=== PATIENT | female | born 1985 | race American Indian/Alaskan Native ===

== ENCOUNTER 2017-02-22 10:32 | Emergency (ER) | payer MEDICAID ==
[2017-02-22 10:38] VITALS: BP 105/70; PULSE 79; TEMP 97; O2SAT 99; BMI 40.2
--- NOTE | 2017-02-22 11:53 | ED PDOC ---
Lower Extremity Pain/Injury Time Seen by Provider: 02/22/17 11:19 Chief Complaint (Nursing): Lower Extremity Problem/Injury Chief Complaint (Provider): right ankle pain History Per: Patient History/Exam Limitations: no limitations - Ankle/Foot Description Of Injury: Twisted Currently Unable To: Bear Weight Alleviating Factor(s): Ice Therapy, Elevation Feet: 1 - pain, swelling,pain - Risk Factors DVT Risk Factors: Pos: None Past Medical History Reviewed: Historical Data, Nursing Documentation, Vital Signs Vital Signs: Last Vital Signs Temp 97 F L 02/22/17 10:37 Pulse 79 02/22/17 10:37 Resp BP 105/70 02/22/17 10:37 Pulse Ox 99 02/22/17 10:37 - Medical History PMH: No Chronic Diseases - Surgical History Surgical History: - Family History Family History: States: Unknown Family Hx - Immunization History Hx Tetanus Toxoid Vaccination: No Hx Influenza Vaccination: No Hx Pneumococcal Vaccination: No - Home Medications Home Medications: Ambulatory Orders Medication Instructions Recorded Bactrim DS 800 mg-160 mg 1 tab PO BID 11/08/13 Cephalexin 500 mg PO Q6H 11/08/13 traZODone 50 mg PO HS 11/08/13 Ibuprofen [Motrin] 1 tab PO TID PRN #30 tab 11/11/13 Acetaminophen/Codeine Phosph 1 tab PO Q6H PRN #15 tab 10/15/14 [Acetaminophen/Codeine 300 mg-30 mg] Albuterol HFA [Ventolin HFA 90 1 puff IH BID PRN #1 unit 10/15/14 mcg/actuation (8 g)] Amoxicillin/Clavulanate Pota 1 tab PO BID #20 tab 10/15/14 [Augmentin 875 mg-125 mg] Ondansetron ODT [Zofran ODT] 4 mg PO QID PRN #15 odt 10/12/15 Ibuprofen [Motrin] 400 mg PO Q6 #30 tab 12/20/15 traMADol [Ultram] 50 mg PO TID PRN #20 tab 01/03/16 - Allergies Allergies/Adverse Reactions: Allergies Allergy/AdvReac Type Severity Reaction Status Date / Time acetaminophen [From Percocet] Allergy ITCHING Verified 02/22/17 10:58 oxycodone HCl [From Percocet] Allergy ITCHING Verified 02/22/17 10:58 Review of Systems ROS Statement: Except As Marked, All Systems Reviewed And Found Negative Constitutional: Negative for: Fever Musculoskeletal: Positive for: Other (ankle pain) Physical Exam - Reviewed Nursing Documentation Reviewed: Yes Vital Signs Reviewed: Yes - Physical Exam Appears: Positive for: Well, Non-toxic, No Acute Distress Skin: Positive for: Normal Color, Warm, DRY Cardiovascular/Chest: Positive for: Regular Rate, Rhythm Respiratory: Positive for: CNT, Normal Breath Sounds Extremity: Positive for: Other (right ankle: swelling to medial aspect of ankle. tenderness noted. nuerovasc intact. no fibula head pain) Neurologic/Psych: Positive for: Alert, Oriented - ECG O2 Sat by Pulse Oximetry: 99 - Radiology X-Ray: Interpreted by Me (hardware noted. soft tissue swelling noted. no acute fracture. ) Medical Decision Making Medical Decision Making: aircast placed and crutches. f/u with podiatry. motrin Disposition - Clinical Impression Clinical Impression: Ankle injury - Patient ED Disposition Is Patient to be Admitted: No Counseled Patient/Family Regarding: Studies Performed, Diagnosis, Need For Followup, Rx Given - Disposition Referrals: Podiatry Clinic [Outside] Disposition: Routine/Home Disposition Time: 11:57 Condition: STABLE Instructions: Swollen Joint (ED) Forms: [facility] ([place]), [facility] ED School/Work Excuse
--- NOTE | 2017-02-22 13:09 | RAD ---
PROCEDURE: Left Ankle Radiographs. HISTORY: injury COMPARISON: 01/03/2016 FINDINGS: BONES: Status post ORIF distal fibular fracture with plate and screw fixation device. No acute fracture identified. Plantar calcaneal spur noted. JOINTS: Normal. No osteoarthritis. Ankle mortise maintained. Talar dome intact SOFT TISSUES: Mild medial soft tissue swelling noted. OTHER FINDINGS: None. IMPRESSION: No acute fracture.
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
== END 2017-02-22 15:27 | disposition home or self-care (01) ==
LOC: H.ER 10:32
DX: M76.822 Posterior tibial tendinitis, left leg (principal)

== ENCOUNTER 2017-04-20 13:07 | Observation (INO) | payer MEDICAID ==
[2017-04-11 15:04] VITALS: BMI 41.3
--- NOTE | 2017-04-20 14:34 | CP.PCM.PN ---
Subjective - Date & Time of Evaluation Date of Evaluation: 04/20/17 Time of Evaluation: 14:44 - Subjective Subjective: 31 y/o female seen at bedside in [facility] for left foot surgery. Patient states that she is having her ligaments and tendons repaired to the left foot. Patient states that she has been NPO since midnight and denies of any adverse anesthesia reactions. Patient denies of any recent F/N/V/C/SOB/CP. PMHx: denies PSHx: Laproscopy, Craniotomy, left ankle surgery Allergies: Tylenol, Percocet SHx: agrees to marijuana smoking Objective - Vital Signs/Intake and Output Vital Signs (last 24 hours): Temp Pulse Resp BP Pulse Ox 98.5 F 86 18 110/71 96 04/20/17 13:54 04/20/17 13:54 04/20/17 13:54 04/20/17 13:54 04/20/17 13:54 - Constitutional Appears: Well, Non-toxic, No Acute Distress - Extremities Exam Additional comments: Left LE exam: VASC: DP/PT pulses are palpable 2/4, Cap refill time: < 3 sec to all digits, Temp gradient: Warm to cool from proximal to distal, no pitting or non-pitting edema noted DERM: no open lesions, no erythema, no clinical suspicion of active infection NEURO: protective sensation grossly intact ORTHO: Pain on the medial aspect of the ankle on active and passive ROM, pain on Inversion, dorsiflexion, plantarflexion against resistance superior to the PT tendon course, pain on palpation superior to spring ligament, pain on palpation at the course of PT tendon proximal to the ankle joint extending down to its insertion, MMT: 5/5 in all 4 directions - Neurological Exam Neurological Exam: Alert, Awake, Oriented x3 - Psychiatric Exam Psychiatric exam: Normal Affect, Normal Mood Assessment and Plan - Assessment and Plan (Free Text) Assessment: 31 y/o female seen in [facility] for removal of painful hardware, PT tendon and spring ligament repair on the left foot Plan: Pt was seen and examined in [facility] Pt NPO status was confirmed All Pre-op testing and clearance was in the chart Pt has exhausted all conservative treatment at this time and is opting for surgical intervention Pt was explained procedure and post-operative course All pt's questions were answered to satisfaction No guarantees were made Pt understands all risks, benefits and complications of procedure Pt will follow-up with Dr. Olea
--- NOTE | 2017-04-20 14:38 | CP.SDSHP ---
Same Day Surgery H & P - History Proposed Procedure: Repair of PT tendon, LUIS ankle Pre-Op Diagnosis: Painful hardware in left ankle, PT tear and spring ligament tear - Allergies Allergies: Allergies acetaminophen [From Percocet] Allergy (Verified 02/22/17 10:58) ITCHING oxycodone HCl [From Percocet] Allergy (Verified 02/22/17 10:58) ITCHING - Physical Exam Vital Signs: Vital Signs 04/20/17 13:54 Temperature 98.5 F Pulse Rate 86 Respiratory 18 Rate Blood Pressure 110/71 O2 Sat by Pulse 96 Oximetry Mental Status: Alert & Oriented x3 Neuro: WNL Heart: WNL Lungs: WNL GI: WNL - {Optional Preform as Required} Ortho: Other - Impression Impression: Pt was seen and examined in SDS. Pt NPO status was confirmed. All Pre-op testing and clearance was in the chart. Pt has exhausted all conservative treatment at this time and is opting for surgical intervention. Pt was explained procedure and post-operative course. All pt's questions were answered to satisfaction. No guarantees were made. Pt understands all risks, benefits and complications of procedure. Pt will follow-up with Dr. Olea Short Stay Discharge - Short Stay Discharge Admitting Diagnosis/Reason for Visit: T84.498D / M76.821 Disposition: HOME/ ROUTINE Referrals: Ramsey Clancy MD [Primary Care Provider] - Additional Instructions (Diet, Activity): Patient tolerated the surgery well Patient will be admitted to hospital for 23 hour obs for pain management
[2017-04-20] MEDS ORDERED: Lidocaine 1% Inj (20ml) IJ ONE (14:41)
[2017-04-20] MEDS ORDERED: ceFAZolin 2 GM in Sodium Chloride 0.9% 100 ML IVPB ONE (14:41)
[2017-04-20] MEDS ORDERED: Bupivacaine 0.5% Inj(30mL) IJ ONE (14:41)
[2017-04-20] MEDS ORDERED: Sodium Chloride 0.9% 1,000 ML IV SCH (14:45)
[2017-04-20] MEDS ORDERED: Bupivacaine 0.5% Inj(30mL) ONE (15:33)
[2017-04-20] MEDS ORDERED: Lidocaine 1% Inj (20ml) ONE (15:33)
[2017-04-20] MEDS ORDERED: Sevoflurane - Inhalation Anesthetic Liq (250 ml) ONE (15:55)
[2017-04-20] MEDS ORDERED: Midazolam 2 MG/2 ML VIAL ONE (15:55)
[2017-04-20] MEDS ORDERED: Lidocaine Hydrochloride 5 ML INJ ONE (15:55)
[2017-04-20] MEDS ORDERED: Propofol 10 mg/ml Inj (20 ML) ONE (15:55)
[2017-04-20] MEDS ORDERED: Lidocaine Hydrochloride 10 ML INJ ONE (16:06)
[2017-04-20] MEDS ORDERED: Lactated Ringer's 1,000 ML IV ONE ×2 (17:00→19:40)
[2017-04-20] MEDS ORDERED: HYDROmorphone 0.5 mg/0.5 ml ISec ONE (20:40)
[2017-04-20] MEDS ORDERED: Midazolam 2 MG/2 ML VIAL IVP PRN (20:40)
[2017-04-20] MEDS ORDERED: Lactated Ringer's 1,000 ML IV SCH (20:45)
[2017-04-20] MEDS: HYDROmorphone 0.5 mg/0.5 ml ISec IVP PRN ×6 (20:46→21:37)
--- NOTE | 2017-04-20 20:46 | PCM.SURG1 ---
Surgeon's Initial Post Op Note - Surgeon's Notes Surgeon: Dr. Olea DPM Professor Of Economics: Dr. Choi PGY-3, Dr. Muniz PGY-2, Dr. Cam PGY-1 Type of Anesthesia: General LMA Anesthesia Administered By: Dr. Lucero Pre-Operative Diagnosis: Spring ligament tear, posterior tibial tendonitis, painful hardware of left ankle Operative Findings: See dictation. M: Arthrex swivle lock suture ancor, Arthrex internal brace. IL 40 cc of 0.5% lidocaine plain. Specimen: Soft tissue mass - left ankle Post-Operative Diagnosis: Same Operation Performed: Removal of painful hardware, posterior tibial tendon repair , spring ligament repair using internal brace Specimen/Specimens Removed: Soft tissue mass left ankle Estimated Blood Loss: EBL {In ML}: 100 Blood Products Given: N/A Drains Used: No Drains Post-Op Condition: Good Date of Surgery/Procedure: 04/20/17 Time of Surgery/Procedure: 20:49
[2017-04-21] MEDS: ceFAZolin 2 GM in Sodium Chloride 0.9% 100 ML IVPB SCH ×3 (01:25→21:03)
--- NOTE | 2017-04-21 09:16 | RAD ---
PROCEDURE: Left Ankle Radiographs. HISTORY: s/p left LE surgery COMPARISON: Comparison is made to 02/22/2017 FINDINGS: BONES: Interval removal of the plate and screws previously seen at the distal left fibula. There are 2 screws left at the distal left fibula. Again seen is calcaneus spur. JOINTS: Normal. No osteoarthritis. Ankle mortise maintained. Talar dome intact SOFT TISSUES: Normal. OTHER FINDINGS: None. IMPRESSION: Interval removal of the plate and screws from the distal left fibula since the previous exam. Otherwise no interval change. The left ankle is seen in cast.
--- NOTE | 2017-04-21 09:24 | RAD ---
PROCEDURE: Left Foot Radiographs. HISTORY: s/p left LE surgery COMPARISON: Comparison is made to 01/26/2016 FINDINGS: BONES: Again seen is calcaneus spur. There is no evidence of acute fracture or dislocation. Status post prior fixation at the distal left fibula. JOINTS: Degenerative changes seen at the tarsal and tarsometatarsal joints. SOFT TISSUES: Normal. OTHER FINDINGS: None. IMPRESSION: No evidence of acute pathology as described above.
[2017-04-22 08:35] VITALS: BP 124/86; PULSE 82; RESP 20; TEMP 99; O2SAT 96
--- NOTE | 2017-04-22 11:39 | CP.PCM.PN ---
Subjective - Date & Time of Evaluation Date of Evaluation: 04/22/17 Time of Evaluation: 11:32 - Subjective Subjective: 31 year old female with no PMH is seen at bedside for POD#2 of left spring ligament repair and removal of hardware. Patient is seen sitting comfortably in bed. Patient is in NAD and AAO x3. Patient still reports moderate amounts of pain at the surgical site and states that pain medication helps a bit. She reports feeling drowsy from the pain medication. Posterior splint applied is c/d /i. Patient denies n/v/sob/cp/chills or f. Objective - Vital Signs/Intake and Output Vital Signs (last 24 hours): Temp Pulse Resp BP Pulse Ox 99 F 82 20 124/86 96 04/22/17 08:34 04/22/17 08:34 04/22/17 08:34 04/22/17 08:34 04/22/17 08:34 - Medications Medications: Current Medications Apixaban (Eliquis) 2.5 mg PO BID JADIEL PRN Reason: Protocol Stop: 05/02/17 23:59 Last Admin: 04/22/17 09:00 Dose: 2.5 mg Hydromorphone HCl (Dilaudid) 2 mg PO Q4 PRN PRN Reason: Pain, moderate (4-7) Last Admin: 04/22/17 08:59 Dose: 2 mg Hydromorphone HCl (Dilaudid) 2 mg IVP Q6 PRN PRN Reason: For Moderate to Severe pain Lactated Ringer's (Lactated Ringer's) 1,000 mls @ 100 mls/hr IV .Q10H [facility] Last Admin: 04/21/17 03:32 Dose: 100 mls/hr Midazolam HCl (Versed Inj) 2 mg IVP ONCE PRN PRN Reason: Agitation/Restlessness Last Admin: 04/20/17 20:48 Dose: 2 mg Ondansetron HCl (Zofran Inj) 4 mg IVP Q6 PRN PRN Reason: Nausea/Vomiting Last Admin: 04/21/17 08:40 Dose: 4 mg - Constitutional Appears: Well, Non-toxic, No Acute Distress - Extremities Exam Additional comments: Patient dressing is c/d/i Temperature WNL, CFT < 3 secs to the digits, patient is able to wiggle toes - Neurological Exam Neurological Exam: Alert, Awake, Oriented x3 - Psychiatric Exam Psychiatric exam: Normal Affect, Normal Mood Assessment and Plan - Assessment and Plan (Free Text) Assessment: 31 year old female with no PMH is seen at bedside for POD#2 of left spring ligament repair and removal of hardware under observation for severe pain Plan: - Patient was examined and evaluated s/p surgery. All questions/concerns addressed. - After surgical procedure patient in NAD - (+) Void, (+) Appetite - Capillary refill time <3s and NVSI intact. - Pain is getting slightly better with pain medication - Rx Dilaudid and Motrin for pain - Rx Eliquis 2.5 for DVT prophylaxis - Patient was given prophylaxis abx while in house. Will not need d/c with abx. - Patient denies complaints at this time - Post operative instructions and plan of care explained to patient at length. - Pt. acknowledges understanding. - Patient stable for DC per podiatric surgery --Patient in good/stable condition for discharge home. Pt to resume medications per medical reconciliation. Resume regular diet. Please keep dressing clean, dry, & intact to surgical site, use plastic bag over bandage for showering, wear post op shoe at all times when ambulating, call clinic if you see signs of infection (redness, swelling, malodor), please make an appointment to see Dr. Haas in office/clinic within 1 week for post-op check. ---
--- NOTE | 2017-04-24 08:53 | OP ---
PROCEDURE DATE: 04/20/2017 PREOPERATIVE DIAGNOSES: 1. Left ankle painful hardware. 2. Left foot spring ligament tear. POSTOPERATIVE DIAGNOSES: 1. Left ankle painful hardware. 2. Left foot spring ligament tear. PROCEDURES: 1. Left ankle removal of hardware. 2. Left foot spring ligament repair. SURGEON: Piotr Maurice DPM. ASSISTANTS: Mag Evangelista DPM, PGY3 and Tash Muniz DPM, PGY2 ANESTHESIA: General LMA. ANESTHESIOLOGIST: Javier Lucero MD INDICATION: The patient is a 31-year-old female with the above-mentioned diagnoses. The patient has exhausted conservative treatments at this time and is now requesting surgical intervention. The patient signed the consent. After careful explanation of risks, benefits, complications, and alternatives for surgical procedure, no guarantees were given or implied. 2 g Ancef IV were given to the patient prior to the procedure, n.p.o. status was confirmed prior to taking the patient to the operating room. PREPARATION: The patient was brought to the operating room and placed on the operating room table in supine position. A well-padded pneumatic thigh tourniquet was placed on the patient's left thigh. After induction of sedation, the left leg was prepped and draped in usual sterile manner and the procedure began. Procedure #1 is removal of painful hardware from the left lateral ankle. Attention was directed to the lateral aspect of the left fibula where approximately a 5 cm linear longitudinal incision was created overlying the central aspect of the fibula over the previous scar location. The incision was deepened through the subcutaneous tissues with care being taken to identify and retract all vital neurovascular structures. All bleeders were cauterized and ligated as necessary. At this time, a linear periosteal incision was created overlying the central aspect of the lateral fibula. The periosteum was then reflected medially and laterally after exposing the fibula into the operative site and so as the fibular plate and screws. It was noted at this time that a thick layer of bony overgrowth has grown over the fibular plate; therefore, an osteotome and mallet were used to gently resect all of the overlying bone, which was in the way of removing the plate. Once this was completed, the Hex screwdriver from the [employer] set was used to remove the distal screws from the plate. Once this was completed, the proximal screws were removed using tools from the screw removal set and the plate was removed from the bone using osteotomes. The wound was copiously irrigated using normal sterile saline. Deep tissues were closed using 2-0 Vicryl subcuticular closure, then using 4-0 Vicryl, and skin was closed using 4-0 nylon in horizontal mattress fashion. Procedure #2 is left foot spring ligament repair. At this time, attention was directed to the medial aspect of the left foot where approximately a 3 cm curvilinear incision was created overlying the medial aspect of the foot at the level of the sustentaculum viv just proximal to the posterior tibial tendon. The incision was deepened through the subcutaneous tissues with care being taken to identify and retract all vital neurovascular structures. All bleeders were cauterized and ligated as necessary. At this time, the posterior tibial tendon was identified. A deep incision was created just superior to the posterior tibial tendon and the tendon was retracted plantarly while the sustentaculum viv of the calcaneus was identified. Once the sustentaculum viv was visualized, the location was set under C-arm using a K-wire. The K-wire was chosen at the sustentaculum viv pointing plantarly in order to avoid entering the joint. This positioning was confirmed under C-arm. Next, the 2.5 mm cannulated drill bit from internal bridge set was used to drill over the K-wire. Then the 3.5 tap was tapped to the original length. A 3.5 mm SwiveLock, which was loaded with FiberTape was inserted into the hole and the handle was removed. Next, the dissection was continued slightly distally in order to locate the posteromedial aspect of the navicular and as the K-wire was drilled from plantar to dorsal through the navicular, this positioning was checked under fluoroscopy. Next, the navicular was drilled using the 3.5 mm drill and tap. Once this was completed, one limb of the FiberTape was passed dorsally from dorsal to plantar through the drill hole and the other limb was passed from plantar to dorsal through the same drill hole. The two ends of the FiberTape were held under tension from dorsal to plantar and plantar to dorsal and a 4.75 mm SwiveLock anchor was inserted as an interference screw through the navicular hole. The remaining ends of the FiberTape were cut at this time and correction of the deformity was noted to be excellent. The wound was copiously irrigated with normal sterile saline. Deep tissues were closed using 2-0 Vicryl subcuticular closure, then using 4-0 Vicryl and skin was closed using 4-0 nylon. Following the procedure, a total of 30 mL of 0.5% Marcaine plain were injected in a local block fashion to the left foot ankle. The wounds were dressed using Betadine, Adaptic, 4x4s, Kerlix, and a posterior splint was applied. POSTOPERATIVE CONDITION: The patient tolerated the anesthesia and procedure well and was escorted to recovery room with vital signs stable and neurovascular status intact to the left foot. This patient will follow up with Dr. Maurice in his office next week. Piotr Maurice DPM MTDNitin
== END 2017-04-22 14:13 | disposition home or self-care (01) ==
LOC: H.OPSURG 13:07 → H.ERHOLD 21:05 → H.MEDSURG1 22:24
PROVIDERS: ADMIT Podiatrist Foot & Ankle Surgery; ATTEND Podiatrist Foot & Ankle Surgery
DX: T84.84XA Pain due to internal orthopedic prosthetic devices, implants and grafts, initial encounter (principal); Y83.1 Surgical operation with implant of artificial internal device as the cause of abnormal reaction of the patient, or of later complication, without mention of misadventure at the time of the procedure; Z88.6 Allergy status to analgesic agent; Z88.5 Allergy status to narcotic agent; X58.XXXA Exposure to other specified factors, initial encounter; Y93.9 Activity, unspecified; S93.492A Sprain of other ligament of left ankle, initial encounter
CPT/HCPCS: 20680; 27695; 73600; 73620; 88300; 88304; 88307; 96365; 96366; 96375; 97161; C1713; G0378; G8978; G8979; G8980; J0690; J1170; J2250; J2405; J2704; J2765; J3010; J7030; J7040; J7120

== ENCOUNTER 2017-06-14 22:50 | Emergency (ER) | payer MEDICAID ==
[2017-06-14 22:51] VITALS: BMI 41.3
[2017-06-14 22:54] VITALS: RESP 18; TEMP 99.7; O2SAT 98
--- NOTE | 2017-06-14 23:29 | ED PDOC ---
HPI: Psych/Substance Abuse Time Seen by Provider: 06/14/17 23:04 Chief Complaint (Nursing): Substance Abuse Chief Complaint (Provider): Substance Abuse History Per: Patient History/Exam Limitations: no limitations Additional Complaint(s): Lorrie is a 31 y/o female who was brought to the ED by EMS for substance abuse. She was intoxicated after using PCP with marijuana. Patient states she used marijuana and didn't know there was PCP in it. She denies suicidal ideation, homicidal ideation, depression, or any other medical complaints. PMD: None Provided Past Medical History Reviewed: Historical Data, Nursing Documentation, Vital Signs Vital Signs: Last Vital Signs Temp 99.7 F H 06/14/17 22:54 Pulse 116 H 06/14/17 22:54 Resp 18 06/14/17 22:54 BP 159/110 H 06/14/17 22:54 Pulse Ox 98 06/14/17 22:54 - Medical History PMH: No Chronic Diseases Denies: Chronic Kidney Disease - Surgical History Surgical History: - Family History Family History: States: No Known Family Hx - Immunization History Hx Tetanus Toxoid Vaccination: No Hx Influenza Vaccination: No Hx Pneumococcal Vaccination: No - Home Medications Home Medications: Ambulatory Orders Medication Instructions Recorded Ibuprofen [Motrin Tab] 800 mg PO DAILY PRN 04/20/17 - Allergies Allergies/Adverse Reactions: Allergies Allergy/AdvReac Type Severity Reaction Status Date / Time acetaminophen [From Percocet] Allergy ITCHING Verified 02/22/17 10:58 oxycodone HCl [From Percocet] Allergy ITCHING Verified 02/22/17 10:58 Review of Systems ROS Statement: Except As Marked, All Systems Reviewed And Found Negative Psych: Negative for: Depression, Suicidal ideation, Other (homicidal ideation) Physical Exam - Reviewed Nursing Documentation Reviewed: Yes Vital Signs Reviewed: Yes - Physical Exam Appears: Positive for: Well, Non-toxic, No Acute Distress Head Exam: Positive for: ATRAUMATIC, NORMAL INSPECTION, NORMOCEPHALIC Skin: Positive for: Normal Color, Warm, Dry Eye Exam: Positive for: Normal appearance, EOMI, PERRL. Negative for: Nystagmus ENT: Positive for: Normal ENT Inspection Neck: Positive for: Normal, Painless ROM, Supple Cardiovascular/Chest: Positive for: Regular Rate, Rhythm. Negative for: Murmur Respiratory: Positive for: Normal Breath Sounds. Negative for: Respiratory Distress Gastrointestinal/Abdominal: Positive for: Normal Exam, Bowel Sounds, Soft. Negative for: Tenderness Back: Positive for: Normal Inspection Extremity: Positive for: Normal ROM. Negative for: Pedal Edema, Deformity Neurologic/Psych: Positive for: Alert, Oriented, Gait (steady). Negative for: Motor/Sensory Deficits - ECG O2 Sat by Pulse Oximetry: 98 (RA) Pulse Ox Interpretation: Normal Medical Decision Making Medical Decision Making: Time: 23:02 --Patient has a steady gait, clear speech, and does not appear intoxicated --She is stable for discharge. Disposition - Clinical Impression Clinical Impression: Marijuana abuse, PCP (phencyclidine) abuse - Patient ED Disposition Is Patient to be Admitted: No Doctor Will See Patient In The: Office Counseled Patient/Family Regarding: Studies Performed, Diagnosis, Need For Followup - Disposition Referrals: [facility] [Outside] Disposition: Routine/Home Disposition Time: 23:30 Condition: GOOD Instructions: Polysubstance Abuse (ED)
[2017-06-14 23:34] VITALS: BP 154/86; PULSE 98
== END 2017-06-14 23:30 | disposition home or self-care (01) ==
LOC: H.ER 22:50
DX: F12.10 Cannabis abuse, uncomplicated (principal); F16.10 Hallucinogen abuse, uncomplicated

== ENCOUNTER 2017-06-21 10:29 | Emergency (ER) | payer MEDICAID ==
[2017-06-21 10:29] VITALS: BMI 41.3
[2017-06-21 10:50] VITALS: BP 156/106; PULSE 100; RESP 21; TEMP 97; O2SAT 98
--- NOTE | 2017-06-21 11:00 | ED PDOC ---
HPI: Dental Pain/Injury Time Seen by Provider: 06/21/17 10:41 Chief Complaint (Nursing): Dental Pain Chief Complaint (Provider): dental pain Additional Complaint(s): 31yo F in ED for eval of tooth pain-states x1year she has been in need of a root canal to right upper molar. went to dentist last week dx with abscess Rx clindamycin advised to take if with pain-began taking clindamycin two days ago because pain increased. last night ate food-food particle became stuck in tooth now with 10/10 pain throbbing with associated swelling to face. denies change in voice, sore throat or fever/chills. Past Medical History Reviewed: Historical Data, Nursing Documentation, Vital Signs Vital Signs: Last Vital Signs Temp 97.0 F L 06/21/17 10:41 Pulse 100 H 06/21/17 10:41 Resp 21 06/21/17 10:41 BP 156/106 H 06/21/17 10:41 Pulse Ox 98 06/21/17 10:41 - Medical History PMH: No Chronic Diseases Denies: Chronic Kidney Disease - Surgical History Surgical History: - Family History Family History: States: Unknown Family Hx - Immunization History Hx Tetanus Toxoid Vaccination: No Hx Influenza Vaccination: No Hx Pneumococcal Vaccination: No - Home Medications Home Medications: Ambulatory Orders Medication Instructions Recorded Ibuprofen [Motrin Tab] 800 mg PO DAILY PRN 04/20/17 Acetaminophen with Codeine 1 tab PO Q6 #8 tab 06/21/17 [Tylenol with Codeine No. 3 300 mg-30 mg] Penicillin VK [Penicillin VK Tab] 250 mg PO Q6H #28 tab 06/21/17 - Allergies Allergies/Adverse Reactions: Allergies Allergy/AdvReac Type Severity Reaction Status Date / Time No Known Allergies Allergy Verified 06/21/17 10:41 Review of Systems ROS Statement: Except As Marked, All Systems Reviewed And Found Negative Constitutional: Negative for: Fever Physical Exam - Reviewed Nursing Documentation Reviewed: Yes Vital Signs Reviewed: Yes - Physical Exam Appears: Positive for: Well, Non-toxic, No Acute Distress Head Exam: Positive for: ATRAUMATIC, NORMAL INSPECTION, NORMOCEPHALIC Skin: Positive for: Normal Color, Warm, DRY Eye Exam: Positive for: Normal appearance, EOMI, PERRL ENT: Positive for: Other (oral cavity: right upper molar-injury noeted to tooh hole observed through dentin with ?pulp exposed. no food particles visible. sinus tenderness on the right. ) Cardiovascular/Chest: Positive for: Regular Rate, Rhythm Respiratory: Positive for: CNT, Normal Breath Sounds Neurologic/Psych: Positive for: Alert, Oriented - ECG O2 Sat by Pulse Oximetry: 98 Medical Decision Making Medical Decision Making: dx: abscess tx: in ER torodol and Rx T#3 for pain. rx PCN Pt states she will be seeing a dentist tomorrow. Disposition - Clinical Impression Clinical Impression: Dental injury, Dental abscess - Patient ED Disposition Is Patient to be Admitted: No Counseled Patient/Family Regarding: Diagnosis, Need For Followup, Rx Given - Disposition Disposition: Routine/Home Disposition Time: 11:02 Condition: STABLE Prescriptions: Acetaminophen with Codeine [Tylenol with Codeine No. 3 300 mg-30 mg] 1 tab PO Q6 #8 tab Penicillin VK [Penicillin VK Tab] 250 mg PO Q6H #28 tab Instructions: Dental Abscess (ED), Dental Caries (ED)
== END 2017-06-21 11:33 | disposition home or self-care (01) ==
LOC: H.ER 10:29
DX: K04.7 Periapical abscess without sinus (principal)
CPT/HCPCS: 81025; 96372; 99281; J1885

== ENCOUNTER 2017-08-27 12:06 | Emergency (ER) | payer MEDICAID ==
[2017-08-27 12:13] VITALS: BP 132/75; PULSE 73; RESP 17; TEMP 98.3; O2SAT 100; BMI 31.3
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
== END 2017-08-27 13:35 | disposition home or self-care (01) ==
LOC: H.ER 12:06
DX: T07.XXXA Unspecified multiple injuries, initial encounter (principal); W19.XXXA Unspecified fall, initial encounter; Y92.89 Other specified places as the place of occurrence of the external cause

== ENCOUNTER 2018-02-02 23:26 | Emergency (ER) | payer MEDICAID ==
[2018-02-02 23:26] VITALS: BMI 31.3
[2018-02-02 23:32] VITALS: BP 125/76; PULSE 110; RESP 22; TEMP 98.7; O2SAT 97
--- NOTE | 2018-02-02 23:49 | ED PDOC ---
HPI: Psych/Substance Abuse Time Seen by Provider: 02/02/18 23:35 Chief Complaint (Nursing): Substance Abuse Chief Complaint (Provider): convulsions Additional Complaint(s): [facility] called to patient's home for altered mental status. At the home, found to be poorly responsive and had 2 minute episode of convulsions. No known h/o seizures. Pt admits she drank alcohol and smoke marijuana and PCP tonight while out with friends, but currently feels fine. Offers no complaints except the desire to go back home. PMD [place] Against Medical Advice - AMA Patient Left Against Medical Advice: The patient declines admission to the hospital and wishes to leave the Emergency Department. This action is against my medical advice. This decision was made with informed refusal. The patient was told that admission to the hospital is necessary. Explanation of the reasons why were discussed. The risks of leaving were explained to the patient and include, but are not limited to, worsening of known or currently unknown conditions, permanent disability and from undiagnosed or untreated conditions. The patient has the capacity to make this informed decision and understands my explanation of the current medical problem and risks of leaving. The patient was given the opportunity to ask questions and reconsider. The patient was encouraged to return to the Emergency Department at any time for further care. Past Medical History Reviewed: Historical Data, Nursing Documentation, Vital Signs Vital Signs: Last Vital Signs Temp 98.7 F 02/02/18 23:28 Pulse 110 H 02/02/18 23:28 Resp 22 02/02/18 23:28 BP 125/76 02/02/18 23:28 Pulse Ox 97 02/02/18 23:28 - Medical History PMH: Denies: Chronic Kidney Disease - Surgical History Surgical History: - Family History Family History: States: Unknown Family Hx - Social History Current smoker - smoking cessation education provided: Yes Alcohol: Social Drugs: Cannabis, Other (PCP) - Immunization History Hx Tetanus Toxoid Vaccination: No Hx Influenza Vaccination: No Hx Pneumococcal Vaccination: No - Home Medications Home Medications: Ambulatory Orders Medication Instructions Recorded traMADol [Ultram] 50 mg PO TID #7 tab 11/24/17 - Allergies Allergies/Adverse Reactions: Allergies Allergy/AdvReac Type Severity Reaction Status Date / Time No Known Allergies Allergy Verified 11/24/17 05:34 Review of Systems ROS Statement: Except As Marked, All Systems Reviewed And Found Negative Physical Exam - Reviewed Nursing Documentation Reviewed: Yes Vital Signs Reviewed: Yes - Physical Exam Appears: Positive for: In Acute Distress (very anxious and tearful, no physical distress) Head Exam: Positive for: ATRAUMATIC, NORMOCEPHALIC Skin: Positive for: Warm, Dry Eye Exam: Positive for: EOMI, PERRL, Conjunctival injection ENT: Negative for: Pharyngeal Erythema, Tonsillar Exudate Neck: Positive for: Painless ROM, Supple Cardiovascular/Chest: Positive for: Regular Rate, Rhythm. Negative for: Murmur Respiratory: Positive for: Normal Breath Sounds. Negative for: Wheezing Gastrointestinal/Abdominal: Positive for: Soft. Negative for: Tenderness Back: Positive for: Normal Inspection. Negative for: Decreased ROM Extremity: Positive for: Normal ROM. Negative for: Deformity Lymphatic: Negative for: Adenopathy Neurologic/Psych: Positive for: Alert, hat brusher machine II-XII (intact), Oriented (x3), Mood/ Affect (angry and anxious mood and affect), Gait (steady). Negative for: Motor/ Sensory Deficits - ECG O2 Sat by Pulse Oximetry: 97 Pulse Ox Interpretation: Normal Disposition - Clinical Impression Clinical Impression: Polysubstance abuse, Convulsions - Disposition Referrals: [facility] [Provider Group] Disposition: Routine/Home Disposition Time: 23:47 Condition: UNKNOWN Instructions: Polysubstance Abuse (DC), Leaving Against Medical Advice
== END 2018-02-02 23:45 | disposition left against medical advice (07) ==
LOC: H.ER 23:26
DX: F19.10 Other psychoactive substance abuse, uncomplicated (principal); F12.10 Cannabis abuse, uncomplicated; R56.9 Unspecified convulsions

== ENCOUNTER 2018-04-13 17:07 | Emergency (ER) | payer MEDICAID ==
[2018-04-13 17:07] VITALS: BMI 31.3
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
[2018-04-13 18:10] VITALS: BP 120/70; PULSE 74; RESP 20; TEMP 98.6; O2SAT 98
== END 2018-04-13 17:50 | disposition home or self-care (01) ==
LOC: H.ER 17:07
DX: F12.10 Cannabis abuse, uncomplicated (principal)

== ENCOUNTER 2018-08-02 02:54 | Emergency (ER) | payer MEDICAID ==
[2018-08-02 04:20] VITALS: BMI 32.8
[2018-08-02 04:23] VITALS: BP 108/75; PULSE 83; RESP 18; TEMP 98.3; O2SAT 98
== END 2018-08-02 04:23 | disposition left against medical advice (07) ==
LOC: H.ER 02:54
DX: Z02.89 Encounter for other administrative examinations (principal)

== ENCOUNTER 2018-09-08 06:26 | Emergency (ER) | payer MEDICAID ==
[2018-09-08 06:26] VITALS: BMI 32.8
[2018-09-08 06:38] VITALS: RESP 16
--- NOTE | 2018-09-08 10:37 | ED PDOC ---
HPI: Female Pain Time Seen by Provider: 09/08/18 08:12 Chief Complaint (Nursing): Female Genitourinary History Per: Patient History/Exam Limitations: no limitations Onset/Duration Of Symptoms: Days (2) Current Symptoms Are (Timing): Still Present Severity: Mild Pain Scale Rating Of: 2 Quality Of Discomfort: Dull Past Medical History Reviewed: Historical Data, Nursing Documentation, Vital Signs Vital Signs: Last Vital Signs Temp 97.7 F 09/08/18 06:36 Pulse 104 H 09/08/18 06:36 Resp 16 09/08/18 06:36 BP 110/76 09/08/18 06:36 Pulse Ox 97 09/08/18 06:36 - Medical History PMH: No Chronic Diseases Denies: Chronic Kidney Disease - Surgical History Surgical History: - Family History Family History: States: Unknown Family Hx - Immunization History Hx Tetanus Toxoid Vaccination: No Hx Influenza Vaccination: No Hx Pneumococcal Vaccination: No - Home Medications Home Medications: Ambulatory Orders Medication Instructions Recorded traMADol [Ultram] 50 mg PO TID #7 tab 11/24/17 Clindamycin [Cleocin] 300 mg PO TID #21 cap 09/08/18 Ibuprofen [Motrin] 600 mg PO TID #20 tab 09/08/18 - Allergies Allergies/Adverse Reactions: Allergies Allergy/AdvReac Type Severity Reaction Status Date / Time No Known Allergies Allergy Verified 08/02/18 04:20 Review of Systems ROS Statement: Except As Marked, All Systems Reviewed And Found Negative Physical Exam - Reviewed Nursing Documentation Reviewed: Yes Vital Signs Reviewed: Yes - Physical Exam Appears: Positive for: Well Head Exam: Positive for: ATRAUMATIC, NORMAL INSPECTION Skin: Positive for: Normal Color, Warm, Dry Eye Exam: Positive for: EOMI ENT: Positive for: Normal ENT Inspection Neck: Positive for: Painless ROM Cardiovascular/Chest: Positive for: Regular Rate, Rhythm Respiratory: Positive for: Normal Breath Sounds Pelvic Exam: Positive for: No Masses, Mass (Left labial swelling tender no redness), Other (Treater LONNY Clinton). Negative for: Active Bleeding, Blood Neurologic/Psych: Positive for: Alert, Oriented - ECG O2 Sat by Pulse Oximetry: 97 Medical Decision Making Medical Decision Making: Impression Left vaginal labial swelling Diff include Bartholin cyst Plan Rx for clindamicyn Compresses Follow up with [facility]ROGLY[facility]ER[facility] NITRATOR [facility]PER[facility] Disposition - Clinical Impression Clinical Impression: Bartholin cyst, Bartholinitis - Patient ED Disposition Is Patient to be Admitted: No Doctor Will See Patient In The: Office Counseled Patient/Family Regarding: Studies Performed, Diagnosis, Need For Followup - Disposition [facility] Disposition: Routine/Home Disposition Time: 10:00 Condition: GOOD Additional Instructions: KIRK ONEILL, thank you for letting us take care of you today. Your provider was Ferny Panda MD and you were treated for FEMALE GENITOURINARY. The emergency medical care you received today was directed at your acute symptoms. If you were prescribed any medication, please fill it and take as directed. It may take several days for your symptoms to resolve. Return to the Emergency Department if your symptoms worsen, do not improve, or if you have any other problems. Please contact your doctor or call one of the physicians/clinics you have been referred to that are listed on the Patient Visit Information form that is included in your discharge packet. Bring any paperwork you were given at discharge with you along with any medications you are taking to your follow up visit. Our treatment cannot replace ongoing medical care by a primary care provider outside of the emergency department. Thank you for allowing the [facility] team to be part of your care today. If you had an X-Ray or CT scan: A Radiologist will review the ED reading if any change in treatment is needed we will contact you. If you had a blood, urine, or wound culture: It will take several days for the results, if any change in treatment is needed we will contact you. If you had an STI test: It will take 48 hours for the results. Please call after 1 week if you have not heard back. Prescriptions: Clindamycin [Cleocin] 300 mg PO TID #21 cap Ibuprofen [Motrin] 600 mg PO TID #20 tab Instructions: Bartholin's Gland Cyst
[2018-09-08 11:41] VITALS: BP 118/71; PULSE 82; TEMP 97.2; O2SAT 99
== END 2018-09-08 11:41 | disposition home or self-care (01) ==
LOC: H.ER 06:26
DX: N75.0 Cyst of Bartholin's gland (principal); N75.8 Other diseases of Bartholin's gland